=== PATIENT | male | born 1945 | race Caucasian/White ===

== ENCOUNTER 2021-04-22 15:10 | Outpatient (CLI) | payer OTHER ==
[~2021-04-22 15:10] MED LIST: NABUMETONE500 MG PO; PERCOCET 5/3251 TAB PO; PROTONIX40 MG PO
== END 2021-04-22 15:15 | disposition home or self-care (01) ==
LOC: PPH VACUNA 15:10
PROVIDERS: ATTEND Emergency Medicine Pediatric Emergency Medicine
DX: Z23 Encounter for immunization (principal)

== ENCOUNTER 2021-12-24 08:30 | Outpatient (CLI) | payer OTHER | END 2021-12-24 08:40 | disposition home or self-care (01) | LOC: PPH VACUNA 08:30 | PROVIDERS: ATTEND Emergency Medicine Pediatric Emergency Medicine | DX: Z23 Encounter for immunization (principal) ==